=== PATIENT | female | born 1950 | race Two or more races ===

== ENCOUNTER 2016-09-18 14:22 | Observation (INO) | payer MEDICARE ==
[~2016-09-18] VITALS: Ht 152.4 cm; Wt 58.0 kg
[~2016-09-18 14:22] MED LIST: CIPR250T27 PO; INSU100I28 SQ-INSULIN; INSU100V8 SQ; LISI40TA PO; PRAV20TA2 PO; SERT50TA5 PO
[2016-09-18] MEDS ORDERED: SODIUM CHLORIDE 0.9% 1,000ML IVBOLUS ONE (15:00)
[2016-09-18 15:33] LABS: HEMOGLOBIN 13.9 g/dL (11.7-16.4)
[2016-09-18 15:45] LABS: BLOOD UREA NITROGEN 42 mg/dL (7-18)
[2016-09-18 15:49] LABS: ACETAMINOPHEN < 2 mcg/mL (10-30)
[2016-09-18 16:59] LABS: DAU SCREEN DISCLAIMER
[2016-09-18] MEDS: INSULIN REGULAR 100 UNITS/ML, 3ML VIAL SQ-INSULIN SCH ×2 (17:00→22:53)
[2016-09-18] MEDS ORDERED: HYDROcodone/APAP 5/325 TABLET PO PRN (17:00)
[2016-09-18] MEDS ORDERED: QUETIAPINE 25MG TABLET PO PRN (17:00)
[2016-09-18] MEDS ORDERED: ZIPRASIDONE 20 MG INJ IM PRN (17:00)
[2016-09-18] MEDS ORDERED: DOCUSATE 100 MG CAPSULE PO PRN (17:00)
[2016-09-18] MEDS ORDERED: ONDANSETRON ODT 4 MG PO PRN (17:00)
[2016-09-18] MEDS ORDERED: LORazepam 1MG TABLET PO PRN (17:00)
[2016-09-18 18:16] VITALS: BP 121/65
[2016-09-18 19:30] VITALS: BP 104/55
[2016-09-18] MEDS: PRAVASTATIN 20 MG TABLET PO SCH ×2 (20:57→21:47)
[2016-09-18] MEDS: INSULIN DETEMIR 100 UNITS/ML, PEN SQ-INSULIN SCH (21:45)
[2016-09-18] MEDS: LISINOPRIL 20 MG TABLET PO SCH (21:47)
[2016-09-19] MEDS: INSULIN REGULAR 100 UNITS/ML, 3ML VIAL SQ-INSULIN SCH ×4 (07:00→21:01)
[2016-09-19 08:02] VITALS: BP 94/68
[2016-09-19] MEDS: SERTRALINE 50MG TABLET PO SCH (08:31)
[2016-09-19] MEDS: LISINOPRIL 20 MG TABLET PO SCH ×2 (08:32→21:29)
[2016-09-19] MEDS: INSULIN DETEMIR 100 UNITS/ML, PEN SQ-INSULIN SCH (16:35)
[2016-09-19 19:42] VITALS: BP 99/52
[2016-09-19 20:54] VITALS: BP 108/51
[2016-09-19 21:27] VITALS: BP 126/67
[2016-09-20 07:36] VITALS: BP 119/64
[2016-09-20] MEDS: LISINOPRIL 20 MG TABLET PO SCH ×2 (07:46→21:00)
[2016-09-20] MEDS: INSULIN REGULAR 100 UNITS/ML, 3ML VIAL SQ-INSULIN SCH ×4 (07:48→21:48)
[2016-09-20] MEDS: SERTRALINE 50MG TABLET PO SCH (09:00)
[2016-09-20] MEDS ORDERED: DEXTROSE 50%, 50ML SYRINGE IVPush PRN (19:30)
[2016-09-20] MEDS ORDERED: DEXTROSE 4 GM TAB.CHEW PO PRN (19:30)
[2016-09-20] MEDS ORDERED: GLUCAGON 1 MG IM PRN (19:30)
[2016-09-20 19:47] VITALS: BP 92/49
[2016-09-20] MEDS ORDERED: SODIUM CHLORIDE FLUSH 10ML SYR IVF SCH (21:00)
[2016-09-20 21:12] VITALS: BP 115/63
[2016-09-20] MEDS: PRAVASTATIN 20 MG TABLET PO SCH (21:46)
[2016-09-20] MEDS: INSULIN DETEMIR 100 UNITS/ML, PEN SQ-INSULIN SCH (21:51)
[2016-09-21 07:21] VITALS: BP 71/47
[2016-09-21] MEDS: INSULIN REGULAR 100 UNITS/ML, 3ML VIAL SQ-INSULIN SCH ×4 (07:30→21:00)
[2016-09-21] MEDS: SERTRALINE 50MG TABLET PO SCH (08:00)
[2016-09-21] MEDS: LISINOPRIL 20 MG TABLET PO SCH ×2 (08:00→21:00)
[2016-09-21 08:25] VITALS: BP 119/68
[2016-09-21 19:21] VITALS: BP 110/60
[2016-09-21] MEDS: INSULIN DETEMIR 100 UNITS/ML, PEN SQ-INSULIN SCH (21:28)
[2016-09-21] MEDS: PRAVASTATIN 20 MG TABLET PO SCH (22:00)
[2016-09-22 07:56] VITALS: BP 156/75
[2016-09-22] MEDS: INSULIN REGULAR 100 UNITS/ML, 3ML VIAL SQ-INSULIN SCH ×4 (08:27→20:47)
[2016-09-22] MEDS: LISINOPRIL 20 MG TABLET PO SCH ×2 (09:15→20:43)
[2016-09-22] MEDS: SERTRALINE 50MG TABLET PO SCH (09:15)
[2016-09-22 20:00] VITALS: BP 96/55
[2016-09-22] MEDS: PRAVASTATIN 20 MG TABLET PO SCH (20:45)
[2016-09-22] MEDS: INSULIN DETEMIR 100 UNITS/ML, PEN SQ-INSULIN SCH (20:46)
[2016-09-23 05:23] LABS: BLOOD UREA NITROGEN 34 mg/dL (7-18)
[2016-09-23] MEDS: INSULIN REGULAR 100 UNITS/ML, 3ML VIAL SQ-INSULIN SCH ×4 (07:00→20:25)
[2016-09-23 08:30] VITALS: BP 103/65
[2016-09-23] MEDS: SERTRALINE 50MG TABLET PO SCH (09:00)
[2016-09-23 19:46] VITALS: BP 99/64
[2016-09-23] MEDS: PRAVASTATIN 20 MG TABLET PO SCH (20:24)
[2016-09-23] MEDS: INSULIN DETEMIR 100 UNITS/ML, PEN SQ-INSULIN SCH (21:20)
[2016-09-24] MEDS: INSULIN REGULAR 100 UNITS/ML, 3ML VIAL SQ-INSULIN SCH ×4 (07:00→21:00)
[2016-09-24] MEDS: SERTRALINE 50MG TABLET PO SCH (07:42)
[2016-09-24 08:03] VITALS: BP 117/68
[2016-09-24 19:42] VITALS: BP 96/65
[2016-09-24] MEDS: PRAVASTATIN 20 MG TABLET PO SCH (22:06)
[2016-09-24] MEDS: INSULIN DETEMIR 100 UNITS/ML, PEN SQ-INSULIN SCH (22:06)
[2016-09-25] MEDS: INSULIN REGULAR 100 UNITS/ML, 3ML VIAL SQ-INSULIN SCH ×4 (07:00→21:20)
[2016-09-25 08:11] VITALS: BP 105/64
[2016-09-25] MEDS: SERTRALINE 50MG TABLET PO SCH (08:15)
[2016-09-25 19:33] VITALS: BP 133/66
[2016-09-25] MEDS: PRAVASTATIN 20 MG TABLET PO SCH (21:21)
[2016-09-25] MEDS: INSULIN DETEMIR 100 UNITS/ML, PEN SQ-INSULIN SCH (21:21)
[2016-09-26] MEDS: INSULIN REGULAR 100 UNITS/ML, 3ML VIAL SQ-INSULIN SCH ×4 (07:00→21:31)
[2016-09-26 08:10] VITALS: BP 121/68
[2016-09-26] MEDS: SERTRALINE 50MG TABLET PO SCH (08:39)
[2016-09-26 19:37] VITALS: BP 121/68
[2016-09-26] MEDS: PRAVASTATIN 20 MG TABLET PO SCH (21:29)
[2016-09-26] MEDS: INSULIN DETEMIR 100 UNITS/ML, PEN SQ-INSULIN SCH (21:31)
[2016-09-27 07:25] VITALS: BP 126/70
[2016-09-27] MEDS: SERTRALINE 50MG TABLET PO SCH (08:00)
[2016-09-27] MEDS: INSULIN REGULAR 100 UNITS/ML, 3ML VIAL SQ-INSULIN SCH ×4 (08:00→20:33)
[2016-09-27 19:24] VITALS: BP 99/60
[2016-09-27] MEDS: INSULIN DETEMIR 100 UNITS/ML, PEN SQ-INSULIN SCH (20:31)
[2016-09-27] MEDS: PRAVASTATIN 20 MG TABLET PO SCH (20:33)
[2016-09-28 08:05] VITALS: BP 122/95
[2016-09-28] MEDS: INSULIN REGULAR 100 UNITS/ML, 3ML VIAL SQ-INSULIN SCH ×4 (08:12→20:18)
[2016-09-28] MEDS: SERTRALINE 50MG TABLET PO SCH (08:12)
[2016-09-28 19:19] VITALS: BP 148/70
[2016-09-28] MEDS: INSULIN DETEMIR 100 UNITS/ML, PEN SQ-INSULIN SCH (20:19)
[2016-09-28] MEDS: PRAVASTATIN 20 MG TABLET PO SCH (20:19)
== END 2016-09-29 03:47 ==
LOC: ED 16:31 → EDIP 16:32 → ED 16:42 → 3E 18:01
PROVIDERS: ADMIT Internal Medicine
DX: R45.851 Suicidal ideations (principal); F20.9 Schizophrenia, unspecified; F31.9 Bipolar disorder, unspecified; I12.9 Hypertensive chronic kidney disease with stage 1 through stage 4 chronic kidney disease, or unspecified chronic kidney disease; E11.22 Type 2 diabetes mellitus with diabetic chronic kidney disease; N18.3 Chronic kidney disease, stage 3 (moderate); E11.649 Type 2 diabetes mellitus with hypoglycemia without coma; E78.5 Hyperlipidemia, unspecified; E87.1 Hypo-osmolality and hyponatremia; Z87.891 Personal history of nicotine dependence; Z91.19 Patient's noncompliance with other medical treatment and regimen
CPT/HCPCS: 36415; 80048; 80307; 80329; 82040; 82947; 82962; 85025; 96372; 99285; G0378; J1815; J3486; G0480